=== PATIENT | male | born 1990 | race African-American/Black ===

== ENCOUNTER 2018-04-04 17:47 | Inpatient (IN) | payer MEDICAID ==
[~2018-04-04] VITALS: Ht 170.2 cm; Wt 67.6 kg
[2018-04-04 18:18] LABS: BASOPHILS % (AUTO) 0.7 % (0.0-2.0); EOSINOPHILS % (AUTO) 2.6 % (1.0-6.0); HEMATOCRIT 42.7 % (41-53); HEMOGLOBIN 14.5 g/dL (13.5-17.5); LYMPHOCYTES # (AUTO) 2.1 K/uL (1.0-4.8); MEAN CORPUSCULAR HEMOGLOBIN 29.3 pg (26.0-34.0); MEAN CORPUSCULAR VOLUME 86 fL (80-100); MONOCYTES # (AUTO) 0.3 K/uL (0.1-1.0); MONOCYTES % (AUTO) 4.9 % (2.0-9.0); NEUTROPHILS # (AUTO) 4.5 K/uL (1.8-7.7); NEUTROPHILS % (AUTO) 62.8 % (40.0-70.0); PLATELET COUNT (AUTO) 348 K/uL (150-450); RED BLOOD CELL COUNT(AUTO) 4.95 MIL/uL (4.50-5.90); RED CELL DISTRIBUTION WIDTH 13.4 % (11.5-14.5)
[2018-04-04 18:55] LABS: ANION GAP 9 mmol/L (8-16); CALCIUM, TOTAL 9.1 mg/dL (8.8-10.5); CARBON DIOXIDE 28 mmol/L (22-29); CHLORIDE 102 mmol/L (98-107); CREATININE 0.83 mg/dL (0.60-1.30); GLOMERULAR FILTR. RATE CALC > 60 mL/min (>60); GLUCOSE,RANDOM 109 mg/dL (70-110); POTASSIUM 4.3 mmol/L (3.5-5.1); SODIUM SERUM 139 mmol/L (136-145); UREA NITROGEN, BLOOD 16 mg/dL (7-18)
[2018-04-04 18:57] LABS: ALANINE AMINOTRANSFERASE 20 U/L (12-78); ALBUMIN 3.9 g/dL (3.4-5.0); ALKALINE PHOSPHATASE 88 U/L (46-116); ASPARTATE AMINOTRANSFERASE 15 U/L (15-37); BILIRUBIN,TOTAL 0.2 mg/dL (0.1-1.0); TOTAL PROTEIN, SERUM 8.3 g/dL (6.4-8.2)
[2018-04-04] MEDS ORDERED: HALOPERIDOL 5 MG TABLET PO PRN (19:00)
[2018-04-04] MEDS ORDERED: ZOLPIDEM TARTRATE 10 MG TABLET PO PRN (19:00)
[2018-04-04] MEDS ORDERED: LORazepam 2 MG TABLET PO PRN (19:00)
[2018-04-04 20:33] LABS: AMPHET/METH SCREEN,URINE NEGATIVE (NEGATIVE); BARBITURATE SCREEN, URINE NEGATIVE (NEGATIVE); BENZODIAZEPINES SCREEN,URINE NEGATIVE (NEGATIVE); CANNABINOID SCREEN,URINE POSITIVE (NEGATIVE); COCAINE SCREEN,URINE NEGATIVE (NEGATIVE); METHADONE SCREEN, URINE NEGATIVE (NEGATIVE); OPIATE SCREEN,URINE NEGATIVE (NEGATIVE); PHENCYCLIDINE SCREEN,URINE NEGATIVE (NEGATIVE)
[2018-04-04 21:32] LABS: HEMOGLOBIN A1C 5.9 % (4.5-6.2)
[2018-04-04 21:41] LABS: CHOL/HDL RATIO 3.1 (4.2-7.3); CHOLESTEROL 151 mg/dL (131-200); FREE T4 (FREE THYROXINE) 0.95 ng/dL (0.76-1.46); HDL CHOLESTEROL 49 mg/dL (40-60); LDL CHOL (CALC.) 87 mg/dL (0-130); THYROID STIMULATING HORMONE 1.23 uIU/mL (0.36-3.74); TRIGLYCERIDES 73 mg/dL (15-150)
[2018-04-05 02:10] VITALS: BP 141/82
[2018-04-05 10:20] VITALS: BP 130/82
[2018-04-05] MEDS ORDERED: ALBUTEROL SULFATE HFA 90 MCG/PUFF 8 GM INHALER IH PRN (12:30)
[2018-04-05] MEDS ORDERED: LOPERAMIDE HCL 2 MG CAPSULE PO PRN (12:30)
[2018-04-05] MEDS ORDERED: ACETAMINOPHEN 325 MG TABLET PO PRN (12:30)
[2018-04-05] MEDS ORDERED: BENZOCAINE/MENTHOL LOZENGE MM PRN (12:30)
[2018-04-05] MEDS ORDERED: PETROLATUM,WHITE 71 GM JELLY TP PRN (12:30)
[2018-04-05] MEDS ORDERED: MAGNESIUM HYDROXIDE SUSPENSION 30 ML UDCUP PO PRN (12:30)
[2018-04-05] MEDS ORDERED: BACITRACIN 28.4 GM OINTMENT TP PRN (12:30)
[2018-04-05] MEDS ORDERED: MAG HYDROX/AL HYDROX/SIMETH ES 30 ML SUSPENSION UDCUP PO PRN (12:30)
[2018-04-05] MEDS ORDERED: IBUPROFEN 600 MG TABLET PO PRN (12:30)
[2018-04-05] MEDS ORDERED: ONDANSETRON HCL 4 MG TABLET PO PRN (12:30)
[2018-04-05] MEDS ORDERED: CloNIDine HCL 0.1 MG TABLET PO PRN (12:30)
[2018-04-05 17:30] VITALS: BP 128/80
[2018-04-05] MEDS: OLANZapine 10 MG TABLET PO SCH (21:43)
[2018-04-06 09:30] VITALS: BP 116/96
[2018-04-06 20:47] VITALS: BP 121/81
[2018-04-06] MEDS: OLANZapine 10 MG TABLET PO SCH (21:32)
[2018-04-07 11:52] VITALS: BP 125/81
[2018-04-07 20:12] VITALS: BP 121/80
[2018-04-07] MEDS: OLANZapine 10 MG TABLET PO SCH (20:51)
[2018-04-08 09:48] VITALS: BP 139/76
[2018-04-08 18:53] VITALS: BP 120/62
[2018-04-08] MEDS: OLANZapine 10 MG TABLET PO SCH (20:54)
[2018-04-09 08:15] VITALS: BP 119/83
[2018-04-09] MEDS ORDERED: OLAN10TA3 PO (10:24)
== END 2018-04-09 11:21 | disposition home or self-care (01) | DRG 753 ==
LOC: EMS 17:48 → UNDOADMIN 20:30 → 3EI 20:30 → B3A 20:30
PROVIDERS: ADMIT Psychiatry & Neurology Child & Adolescent Psychiatry; ATTEND Psychiatry & Neurology Child & Adolescent Psychiatry
DX: F31.5 Bipolar disorder, current episode depressed, severe, with psychotic features (principal); R45.851 Suicidal ideations; Z59.0 Homelessness; F12.90 Cannabis use, unspecified, uncomplicated; F17.200 Nicotine dependence, unspecified, uncomplicated; F41.9 Anxiety disorder, unspecified; G47.00 Insomnia, unspecified; K59.00 Constipation, unspecified; Z65.3 Problems related to other legal circumstances; Z56.0 Unemployment, unspecified; Z71.51 Drug abuse counseling and surveillance of drug abuser; Z71.6 Tobacco abuse counseling
CPT/HCPCS: 83036; 84439; 84443; 99285; G0480

== ENCOUNTER 2020-03-26 02:31 | Inpatient (IN) | payer MEDICAID ==
[~2020-03-26] VITALS: Ht 170.2 cm; Wt 66.3 kg
[~2020-03-26 02:31] MED LIST: OLAN10TA3 PO
[2020-03-26 03:49] VITALS: BP 127/76
[2020-03-26] MEDS ORDERED: CloNIDine HCL 0.1 MG TABLET PO PRN (08:00)
[2020-03-26] MEDS ORDERED: GuaiFENesin/D-METHORPHAN [SUGAR-FREE] 200-20MG/10 ML SYRUP UDCUP PO PRN (08:00)
[2020-03-26] MEDS ORDERED: LOPERAMIDE HCL 2 MG CAPSULE PO PRN (08:00)
[2020-03-26] MEDS ORDERED: DOCUSATE SODIUM 100 MG CAPSULE PO PRN (08:00)
[2020-03-26] MEDS ORDERED: ACETAMINOPHEN 325 MG TABLET PO PRN (08:00)
[2020-03-26] MEDS ORDERED: ONDANSETRON HCL 4 MG TABLET PO PRN (08:00)
[2020-03-26] MEDS ORDERED: MAG HYDROX/AL HYDROX/SIMETH ES 30 ML SUSPENSION UDCUP PO PRN (08:00)
[2020-03-26] MEDS ORDERED: PETROLATUM,WHITE 28 GM JELLY TP PRN (08:00)
[2020-03-26] MEDS ORDERED: NICOTINE 14 MG/24 HOUR PATCH TD PRN (08:00)
[2020-03-26] MEDS ORDERED: ALBUTEROL SULFATE HFA 90 MCG/PUFF 8 GM INHALER IH PRN (08:00)
[2020-03-26] MEDS ORDERED: MAGNESIUM HYDROXIDE SUSPENSION 30 ML UDCUP PO PRN (08:00)
[2020-03-26 08:08] VITALS: BP 122/86
[2020-03-26] MEDS: LORazepam 2 MG TABLET PO PRN (12:38)
[2020-03-26] MEDS: LITHIUM CARBONATE 300 MG CAPSULE PO SCH ×2 (12:40→16:58)
[2020-03-26] MEDS: OLANZapine 10 MG TABLET PO SCH ×2 (12:40→16:58)
[2020-03-26] MEDS: HALOPERIDOL 5 MG TABLET PO PRN (12:40)
[2020-03-26 16:10] VITALS: BP 133/82
[2020-03-27 06:05] VITALS: BP 126/78
[2020-03-27] MEDS: OLANZapine 10 MG TABLET PO SCH ×2 (08:07→16:45)
[2020-03-27] MEDS: LITHIUM CARBONATE 300 MG CAPSULE PO SCH ×2 (08:07→16:45)
[2020-03-27] MEDS: LORazepam 2 MG TABLET PO PRN (08:07)
[2020-03-27 08:14] VITALS: BP 135/87
[2020-03-27] MEDS ORDERED: DiphenhydrAMINE HCL 50 MG/ML VIAL IM ONE (12:00)
[2020-03-27 16:11] VITALS: BP 126/76
[2020-03-27] MEDS: BENZTROPINE MESYLATE 1 MG TABLET PO SCH (20:16)
[2020-03-27] MEDS ORDERED: BENZTROPINE MESYLATE 1 MG TABLET PO SCH (21:00)
[2020-03-28 02:56] VITALS: BP 128/82
[2020-03-28 07:56] LABS: BASOPHILS % (AUTO) 0.5 % (0.0-2.0); EOSINOPHILS % (AUTO) 1.6 % (1.0-6.0); HEMATOCRIT 41.9 % (41-53); LYMPHOCYTES # (AUTO) 2.2 K/uL (1.0-4.8); LYMPHOCYTES % (AUTO) 29.1 % (22.0-44.0); MEAN CORPUSCULAR HEMOGLOBIN 29.7 pg (26.0-34.0); MEAN CORPUSCULAR HGB CONC 33.4 G/dL (31.0-37.0); MEAN CORPUSCULAR VOLUME 89 fL (80-100); MONOCYTES # (AUTO) 0.4 K/uL (0.1-1.0); MONOCYTES % (AUTO) 5.3 % (2.0-9.0); NEUTROPHILS # (AUTO) 4.8 K/uL (1.8-7.7); NEUTROPHILS % (AUTO) 63.5 % (40.0-70.0); PLATELET COUNT (AUTO) 353 K/uL (150-450); RED BLOOD CELL COUNT(AUTO) 4.72 MIL/uL (4.50-5.90); RED CELL DISTRIBUTION WIDTH 12.9 % (11.5-14.5)
[2020-03-28] MEDS: BENZTROPINE MESYLATE 1 MG TABLET PO SCH ×2 (08:09→17:06)
[2020-03-28] MEDS: OLANZapine 10 MG TABLET PO SCH ×2 (08:09→17:06)
[2020-03-28] MEDS: LITHIUM CARBONATE 300 MG CAPSULE PO SCH ×2 (08:09→17:06)
[2020-03-28 08:32] LABS: ALANINE AMINOTRANSFERASE 28 U/L (12-78); ALBUMIN 3.7 g/dL (3.4-5.0); ALKALINE PHOSPHATASE 68 U/L (46-116); ANION GAP 4 mmol/L (8-16); ASPARTATE AMINOTRANSFERASE 19 U/L (15-37); BILIRUBIN,TOTAL 0.3 mg/dL (0.1-1.0); CALCIUM, TOTAL 9.2 mg/dL (8.8-10.5); CARBON DIOXIDE 29 mmol/L (22-29); CHLORIDE 103 mmol/L (98-107); CHOL/HDL RATIO 2.9 (4.2-7.3); CHOLESTEROL 142 mg/dL (131-200); CREATININE 0.91 mg/dL (0.60-1.30); FREE T4 (FREE THYROXINE) 1.07 ng/dL (0.76-1.46); GLOMERULAR FILTR. RATE CALC > 60 mL/min (>60); GLUCOSE,RANDOM 97 mg/dL (70-110); HDL CHOLESTEROL 49 mg/dL (40-60); LDL CHOL (CALC.) 78 mg/dL (0-130); POTASSIUM 4.1 mmol/L (3.5-5.1); SODIUM SERUM 136 mmol/L (136-145); THYROID STIMULATING HORMONE 0.98 uIU/mL (0.36-3.74); TOTAL PROTEIN, SERUM 7.9 g/dL (6.4-8.2); TRIGLYCERIDES 76 mg/dL (15-150); UREA NITROGEN, BLOOD 12 mg/dL (7-18)
[2020-03-28] MEDS: HALOPERIDOL 5 MG TABLET PO PRN (08:49)
[2020-03-28] MEDS: LORazepam 2 MG TABLET PO PRN (08:49)
[2020-03-28 09:10] VITALS: BP 144/76
[2020-03-28 16:26] VITALS: BP 126/88
[2020-03-29 02:09] VITALS: BP 132/76
[2020-03-29] MEDS: OLANZapine 10 MG TABLET PO SCH ×2 (08:08→16:15)
[2020-03-29] MEDS: BENZTROPINE MESYLATE 1 MG TABLET PO SCH ×2 (08:08→16:15)
[2020-03-29] MEDS: LITHIUM CARBONATE 300 MG CAPSULE PO SCH ×2 (08:08→16:15)
[2020-03-29 08:14] VITALS: BP 131/80
[2020-03-29 16:07] VITALS: BP 122/76
[2020-03-30 01:44] VITALS: BP 130/73
[2020-03-30] MEDS: BENZTROPINE MESYLATE 1 MG TABLET PO SCH ×2 (08:16→16:06)
[2020-03-30] MEDS: OLANZapine 10 MG TABLET PO SCH ×2 (08:16→16:05)
[2020-03-30] MEDS: LITHIUM CARBONATE 300 MG CAPSULE PO SCH ×2 (08:16→16:05)
[2020-03-30 08:54] VITALS: BP 128/100
[2020-03-30] MEDS: HALOPERIDOL 5 MG TABLET PO PRN (16:06)
[2020-03-30] MEDS: LORazepam 2 MG TABLET PO PRN (16:06)
[2020-03-30 16:10] VITALS: BP 127/96
[2020-03-30] MEDS: IBUPROFEN 400 MG TABLET PO PRN (16:26)
[2020-03-30] MEDS: ZOLPIDEM TARTRATE 10 MG TABLET PO PRN (20:31)
[2020-03-31 00:11] VITALS: BP 121/85
[2020-03-31] MEDS ORDERED: LORazepam 2 MG/ML VIAL ONE (06:22)
[2020-03-31] MEDS ORDERED: DiphenhydrAMINE HCL 50 MG/ML VIAL ONE (06:23)
[2020-03-31] MEDS ORDERED: HALOPERIDOL LACTATE 5 MG/ML VIAL ONE (06:23)
[2020-03-31] MEDS ORDERED: DiphenhydrAMINE HCL 50 MG/ML VIAL IM ONE (06:30)
[2020-03-31] MEDS ORDERED: LORazepam 2 MG/ML VIAL IM ONE (06:30)
[2020-03-31] MEDS ORDERED: HALOPERIDOL LACTATE 5 MG/ML VIAL IM ONE (06:30)
[2020-03-31 08:09] VITALS: BP 117/67
[2020-03-31] MEDS: LITHIUM CARBONATE 300 MG CAPSULE PO SCH ×2 (09:05→16:13)
[2020-03-31] MEDS: OLANZapine 10 MG TABLET PO SCH ×2 (09:05→16:13)
[2020-03-31] MEDS: BENZTROPINE MESYLATE 1 MG TABLET PO SCH ×2 (09:05→16:14)
[2020-03-31] MEDS: HALOPERIDOL 5 MG TABLET PO PRN ×2 (10:54→16:14)
[2020-03-31] MEDS: LORazepam 2 MG TABLET PO PRN ×2 (10:54→16:13)
[2020-03-31 16:10] VITALS: BP 124/72
[2020-04-01 03:30] VITALS: BP 138/88
[2020-04-01 08:13] VITALS: BP 138/78
[2020-04-01] MEDS: LITHIUM CARBONATE 300 MG CAPSULE PO SCH ×2 (09:09→16:15)
[2020-04-01] MEDS: BENZTROPINE MESYLATE 1 MG TABLET PO SCH ×2 (09:09→16:14)
[2020-04-01] MEDS: OLANZapine 10 MG TABLET PO SCH ×2 (09:09→16:14)
[2020-04-01 16:07] VITALS: BP 118/87
[2020-04-01] MEDS: ZOLPIDEM TARTRATE 10 MG TABLET PO PRN (22:47)
[2020-04-02 04:11] VITALS: BP 138/83
[2020-04-02 08:33] VITALS: BP 134/84
[2020-04-02] MEDS: BENZTROPINE MESYLATE 1 MG TABLET PO SCH ×2 (08:35→16:42)
[2020-04-02] MEDS: OLANZapine 10 MG TABLET PO SCH (08:35)
[2020-04-02] MEDS: LITHIUM CARBONATE 300 MG CAPSULE PO SCH (08:35)
[2020-04-02 16:07] VITALS: BP 119/79
[2020-04-02] MEDS: LITHIUM CARBONATE 600 MG CAPSULE PO SCH (16:42)
[2020-04-02] MEDS: OLANZapine 7.5 MG TABLET PO SCH (16:42)
[2020-04-03 00:32] VITALS: BP 125/86
[2020-04-03] MEDS: IBUPROFEN 400 MG TABLET PO PRN (00:32)
[2020-04-03] MEDS: ZOLPIDEM TARTRATE 10 MG TABLET PO PRN (00:32)
[2020-04-03] MEDS: OLANZapine 7.5 MG TABLET PO SCH ×2 (08:07→16:58)
[2020-04-03] MEDS: BENZTROPINE MESYLATE 1 MG TABLET PO SCH ×2 (08:07→16:58)
[2020-04-03] MEDS: LITHIUM CARBONATE 600 MG CAPSULE PO SCH ×2 (08:07→16:58)
[2020-04-03 08:27] VITALS: BP 130/97
[2020-04-03 16:10] VITALS: BP 135/91
[2020-04-04 02:19] VITALS: BP 123/78
[2020-04-04] MEDS: BENZTROPINE MESYLATE 1 MG TABLET PO SCH ×2 (08:18→16:29)
[2020-04-04] MEDS: OLANZapine 7.5 MG TABLET PO SCH ×2 (08:18→16:30)
[2020-04-04] MEDS: LITHIUM CARBONATE 600 MG CAPSULE PO SCH ×2 (08:18→16:29)
[2020-04-04 08:35] VITALS: BP 138/74
[2020-04-04 16:10] VITALS: BP 126/67
[2020-04-04] MEDS: IBUPROFEN 400 MG TABLET PO PRN (21:12)
[2020-04-05 05:17] VITALS: BP 128/76
[2020-04-05 08:22] VITALS: BP 123/79
[2020-04-05] MEDS: OLANZapine 7.5 MG TABLET PO SCH ×2 (08:31→16:08)
[2020-04-05] MEDS: BENZTROPINE MESYLATE 1 MG TABLET PO SCH ×2 (08:32→16:08)
[2020-04-05] MEDS: LITHIUM CARBONATE 600 MG CAPSULE PO SCH ×2 (08:32→16:08)
[2020-04-05 16:20] VITALS: BP 136/83
[2020-04-06 04:50] VITALS: BP 132/72
[2020-04-06 08:18] VITALS: BP 120/83
[2020-04-06] MEDS: OLANZapine 7.5 MG TABLET PO SCH ×2 (08:46→16:59)
[2020-04-06] MEDS: LITHIUM CARBONATE 600 MG CAPSULE PO SCH ×2 (08:46→16:58)
[2020-04-06] MEDS: BENZTROPINE MESYLATE 1 MG TABLET PO SCH ×2 (08:46→16:59)
[2020-04-06 16:18] VITALS: BP 118/77
[2020-04-07 08:34] VITALS: BP 122/66
[2020-04-07] MEDS: BENZTROPINE MESYLATE 1 MG TABLET PO SCH ×2 (09:11→16:16)
[2020-04-07] MEDS: LITHIUM CARBONATE 600 MG CAPSULE PO SCH ×2 (09:11→16:15)
[2020-04-07] MEDS: OLANZapine 7.5 MG TABLET PO SCH ×2 (09:12→16:16)
[2020-04-07 16:11] VITALS: BP 117/65
[2020-04-08 05:52] VITALS: BP 118/76
[2020-04-08 08:00] VITALS: BP 107/64
[2020-04-08] MEDS: LITHIUM CARBONATE 600 MG CAPSULE PO SCH ×2 (08:40→16:33)
[2020-04-08] MEDS: BENZTROPINE MESYLATE 1 MG TABLET PO SCH ×2 (08:40→16:33)
[2020-04-08] MEDS: OLANZapine 7.5 MG TABLET PO SCH ×2 (08:40→16:33)
[2020-04-08 16:07] VITALS: BP 128/78
[2020-04-09 06:16] VITALS: BP 114/70
[2020-04-09] MEDS: OLANZapine 7.5 MG TABLET PO SCH ×2 (08:02→17:51)
[2020-04-09] MEDS: LITHIUM CARBONATE 600 MG CAPSULE PO SCH ×2 (08:02→17:51)
[2020-04-09] MEDS: BENZTROPINE MESYLATE 1 MG TABLET PO SCH ×2 (08:02→17:52)
[2020-04-09 08:10] VITALS: BP 113/81
[2020-04-09 16:19] VITALS: BP 119/70
[2020-04-10 06:27] VITALS: BP 117/79
[2020-04-10] MEDS: BENZTROPINE MESYLATE 1 MG TABLET PO SCH ×2 (08:01→16:30)
[2020-04-10] MEDS: OLANZapine 7.5 MG TABLET PO SCH ×2 (08:02→16:30)
[2020-04-10] MEDS: LITHIUM CARBONATE 450 MG ER TABLET PO SCH ×2 (08:02→16:30)
[2020-04-10 08:07] VITALS: BP 123/75
[2020-04-10 16:12] VITALS: BP 127/89
[2020-04-11 05:16] VITALS: BP 118/82
[2020-04-11 08:07] VITALS: BP 113/66
[2020-04-11] MEDS: BENZTROPINE MESYLATE 1 MG TABLET PO SCH ×2 (08:23→16:11)
[2020-04-11] MEDS: OLANZapine 7.5 MG TABLET PO SCH ×2 (08:23→16:11)
[2020-04-11] MEDS: LITHIUM CARBONATE 450 MG ER TABLET PO SCH ×2 (08:23→16:11)
[2020-04-11] MEDS ORDERED: BENZ1TAB10 PO (15:03)
[2020-04-11] MEDS ORDERED: OLAN7.5T9 PO (15:03)
[2020-04-11] MEDS ORDERED: LITH450CRT PO (15:03)
[2020-04-11 16:10] VITALS: BP 121/66
== END 2020-04-11 16:30 | disposition home or self-care (01) | DRG 753 ==
LOC: B3A 02:31
PROVIDERS: ADMIT Psychiatry & Neurology Psychiatry; ATTEND Psychiatry & Neurology Psychiatry
DX: F31.2 Bipolar disorder, current episode manic severe with psychotic features (principal); F29 Unspecified psychosis not due to a substance or known physiological condition; R45.851 Suicidal ideations; F41.9 Anxiety disorder, unspecified; F19.10 Other psychoactive substance abuse, uncomplicated; K21.9 Gastro-esophageal reflux disease without esophagitis; Z59.0 Homelessness; Z79.899 Other long term (current) drug therapy
CPT/HCPCS: 83036; 84436; 84439; 84443; J1200; J1630; J2060